=== PATIENT | female | born 1945 | race Caucasian/White ===

== ENCOUNTER 2018-08-09 02:57 | Emergency (ER) | payer BC ==
[2018-08-09 03:05] VITALS: TEMP 97.9
--- NOTE | 2018-08-09 03:49 | PDOC ---
Attending Attestation - Resident Resident Name: Norma Mcth - ED Attending Attestation I have performed the following: I have examined & evaluated the patient, The case was reviewed & discussed with the resident, I agree w/resident's findings & plan, Exceptions are as noted - HPI HPI: 08/09/18 04:03 72y F hx of htn presents with R back pain x 4-5 days. Pt states she thinks it may have started intially when she reached up to grab something where she felt alittle twing in her left arm / leg. Patient states that since then she has been having moderate lower back pain that is nonradiating, she initially took some Toradol and diazepam from her place of work with mild improvement however beginning yesterday the pain became more severe sore so she came in barely sit up. She denies any fever, chills, numbness, tingling, weakness, urinary or bowel incontinence, tingling or decreased sensation around her groin area. No recent trauma or falls. He does endorse a similar episode many years ago. Patient notes that the pain feels like a spasm in nature, occasionally radiates down to the right lower quadrant. Pain does seem worse when she is trying to move around and improves when she stays at rest - Physicial Exam PE: 08/09/18 05:01 GENERAL: The patient is awake, alert, and fully oriented, Nontoxic - in no acute distress. HEAD: Normocephalic, atraumatic. ABDOMEN: Soft, nontender, normoactive bowel sounds. No guarding, no rebound. . No CVA tenderness EXTREMITIES: Normal range of motion, no edema. NEUROLOGICAL: No facial assymetry, Normal speech, hip flexion/extension 5/ 5Dorsiflexion and plantar flexion 5 out of 5, sensation in LE symmetric, PSYCH: Normal mood, normal affect. SKIN: Warm, Dry, normal turgor, BACK: mild R paravertebral tenderness, no focal tenderness in cervical/thoracic/ lumbar regions - Medical Decision Making 08/09/18 05:07 suspect muscle spasm, consider possible kidney stone will give toradal and flexeril will ck UA no focal midline tenderness to sugegst fx or bony pathology 08/09/18 07:07 pt feeling improved able to ambulate will give tramadol with flexeril at home return precautions were discussed I discussed the physical exam findings, ancillary test results and final diagnoses with the patient. I answered all of the patient's questions. The patient was satisfied with the care received and felt comfortable with the discharge plan and treatment plan. The patient will call their primary care physician within 24 hours to arrange follow-up and will return to the Emergency Department with any new, persistent or worsening symptoms.
[2018-08-09] MEDS ORDERED: KETOROLAC TROMETHAMINE 30 MG/1 ML VIAL IM ONE (04:10)
[2018-08-09] MEDS ORDERED: CYCLOBENZAPRINE HCL 10 MG TABLET (FP) PO ONE (04:11)
[2018-08-09] MEDS ORDERED: LIDOCAINE 5% TOPICAL PATCH TP ONE (04:11)
[2018-08-09] MEDS ORDERED: KETOROLAC TROMETHAMINE 30 MG/1 ML VIAL ONE (04:18)
[2018-08-09] MEDS ORDERED: LIDOCAINE 5% TOPICAL PATCH ONE (04:18)
[2018-08-09] MEDS ORDERED: CYCLOBENZAPRINE HCL 5 MG TABLET PO ONE (04:30)
--- NOTE | 2018-08-09 04:51 | PDOC ---
History of Present Illness - General Chief Complaint: Back Pain Stated Complaint: BACK PAIN Time Seen by Provider: 08/09/18 03:30 - History of Present Illness Initial Comments: 72yo F with PMH of HTN presenting with lower back pain x 4-5 days. Patient denies injury or recent fall. Patient reports she was reaching for an object up high when she may have felt a twinge in her back. Pain is rated 10/10 and worsens when she moves. 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 She felt some relief of pain, but the pain returned. She endorses an intermittent cramping pain that started last night and prompted her to come to the ED. Denies saddle anesthesia, pain shooting down her legs, or urinary/fecal incontinence. No fever, chills, chest pain, or shortness of breath. Past History - Past Medical History Allergies/Adverse Reactions: Allergies Allergy/AdvReac Type Severity Reaction Status Date / Time No Known Allergies Allergy Verified 08/09/18 03:04 Home Medications: Ambulatory Orders Cyclobenzaprine HCl [Flexeril -] 10 mg PO TID #15 tablet 08/09/18 Lidocaine 5% Patch [Lidoderm -] 1 patch TP DAILY #7 patch 08/09/18 Tramadol HCl 50 mg PO QID PRN #12 tablet MDD 4 08/09/18 - Suicide/Smoking/Psychosocial Hx Smoking History: Never smoked Have you smoked in the past 12 months: No Information on smoking cessation initiated: No Hx Alcohol Use: No Drug/Substance Use Hx: No Review of Systems - Review of Systems Comments:: Constitutional: no fever, no chills HEENT: no throat pain, no dysphagia Cardiovascular: no chest pain, no palpitations Respiratory: no cough, no shortness of breath Gastrointestinal: no abdominal pain, no nausea, no vomiting Genitourinary: no dysuria, no frequency Musculoskeletal: +back pain, +muscle spasm Skin: no rash, no itching Neurologic: no headache, no dizziness *Physical Exam - Vital Signs Last Vital Signs Temp Pulse Resp BP Pulse Ox 97.9 F 84 18 139/69 98 08/09/18 03:04 08/09/18 03:04 08/09/18 03:04 08/09/18 03:04 08/09/18 03:04 - Physical Exam Comments: General: Awake, alert, and fully oriented Head: No signs of trauma Eyes: EOMI, sclera anicteric ENT: Moist mucus membranes Neck: Normal ROM, supple Lungs: Lungs clear, Normal breath sounds Cardio: Regular rhythm, S1 and S2 present Abdomen: Soft, nontender. No guarding, no rebound, no masses Extremities: Normal range of motion, Distal pulses present SKIN: Warm, Dry, normal turgor Neurologic: Cranial nerves II through XII grossly intact. Normal speech Back: Tender to palpation in lumbar area, right of midline, no step-offs/ deformities/fluctuance, no bony tenderness; no overlying wound or lesion; negative straight leg test bilaterally Moderate Sedation - Procedure Monitoring Vital Signs: Procedure Monitoring Vital Signs Temperature 97.9 F 08/09/18 03:04 Pulse Rate 84 08/09/18 03:04 Respiratory Rate 18 08/09/18 03:04 Blood Pressure 139/69 08/09/18 03:04 O2 Sat by Pulse Oximetry (%) 98 08/09/18 03:04 ED Treatment Course - Medications Given in the ED: ED Medications Discontinued Medications Generic Name Dose Route Start Last Admin Trade Name Freq PRN Reason Stop Dose Admin Cyclobenzaprine HCl 5 mg 08/09/18 04:30 08/09/18 04:29 Cyclobenzaprine Hcl PO 08/09/18 04:31 5 mg ONCE ONE Administration Ketorolac Tromethamine 30 mg 08/09/18 04:10 08/09/18 04:28 Toradol Injection - IM 08/09/18 04:11 30 mg ONCE ONE Administration Lidocaine 1 patch 08/09/18 04:11 08/09/18 04:29 Lidoderm Patch - TP 08/09/18 04:12 1 patch ONCE ONE Administration Medical Decision Making - Medical Decision Making 72yo F with PMH of HTN presenting with lower back pain x 4-5 days. -DDX includes but not limited to MSK, sciatica, nephrolithiasis -Pain is overlying paravertebral muscles with no bony tenderness -Toradol 30 IM, Flexeril 5mg, Lidocaine patch -UA to assess for hematuria 08/09/18 04:50 Patient reporting some relief of back pain, now rated 8/10. Urine sample sent to assess for hematuria. 08/09/18 05:59 UA negative Patient able to stand and ambulate, somewhat limited by pain Tramadol ordered Plan to discharge 08/09/18 07:06 *DC/Admit/Observation/Transfer Diagnosis at time of Disposition: Musculoskeletal back pain - Discharge Dispostion Disposition: HOME Condition at time of disposition: Stable - Prescriptions Prescriptions: Cyclobenzaprine HCl [Flexeril -] 10 mg PO TID #15 tablet Tramadol HCl 50 mg PO QID PRN #12 tablet MDD 4 PRN Reason: Pain - Referrals Referrals: German Camilo [Primary Care Provider] - - Patient Instructions Printed Discharge Instructions: DI for Low Back Pain Additional Instructions: You came to the ED for back pain. Your pain improved with toradol, flexeril, and a lidoderm patch. Prescription sent to your pharmacy: Flexeril 10 mg three times a day for five days Lidoderm patch: apply to the affected area, Patch may remain in place for up to 12 hours in any 24-hour period. Tramadol 50mg: take as needed for pain, every four to six hours as needed You can also take [id number] motrin or tylenol for pain. Follow the instructions on the medication bottle. Follow-up with you primary care physician in 5-7 days to discuss this ED visit and to further evaluate your back pain. Your care is not complete until you do so. Call and make an appointment. Immediate medical attention is required if you have back pain and : numbness in the genital or rectal area, loss of bowel or bladder control, difficulty with urination; fever, unexplained weight loss, or other signs of illness or infection. If you think you are having an emergency, call for emergency medical services or present to the emergency department right away. - Post Discharge Activity
[2018-08-09 06:23] LABS: URINE APPEARANCE CLEAR; URINE BILIRUBIN NEGATIVE (<2.0 mg/dL); URINE COLOR STRAW; URINE GLUCOSE (UA) NEGATIVE (NEGATIVE); URINE KETONE NEGATIVE (NEGATIVE); URINE LEUK ESTERASE NEGATIVE (NEGATIVE); URINE NITRITE NEGATIVE (NEGATIVE); URINE PROTEIN NEGATIVE (NEGATIVE); URINE UROBILINOGEN NEGATIVE mg/dL (0.2-1.0)
[2018-08-09] MEDS ORDERED: traMADol HCL 50 MG TABLET PO ONE (07:03)
[2018-08-09 07:09] VITALS: BP 133/77; PULSE 74
[2018-08-09] MEDS ORDERED: traMADol HCL 50 MG TABLET ONE (07:27)
[2018-08-09] MEDS ORDERED: LIDOCAINE PATCH REMOVAL MC SCH (22:00)
== END 2018-08-09 07:43 | disposition home or self-care (01) ==
LOC: JER 02:57
PROC: 3E0233Z Introduction of Anti-inflammatory into Muscle, Percutaneous Approach (ICD-10-PCS; principal; 2018-08-09)
DX: M54.5 Low back pain (principal); I10 Essential (primary) hypertension
CPT/HCPCS: 81003; 96372; 99281-25